=== PATIENT | female | born 1995 | race Caucasian/White ===

== ENCOUNTER 2017-01-17 23:26 | Emergency (ER) | payer OTHER ==
[~2017-01-17] VITALS: Ht 172.7 cm; Wt 78.5 kg
[2017-01-17 23:45] VITALS: Ht 172.7 cm; Wt 78.5 kg
[2017-01-18] MEDS ORDERED: SODIUM CHLORIDE 0.9% 1000ML 1,000 ML IV STA (00:28)
[2017-01-18] MEDS ORDERED: ONDANSETRON INJ 2 MG/ML 2 ML VIAL IV STA (00:28)
--- NOTE | 2017-01-18 00:35 | EMERGENCY ROOM VISIT NOTE ---
History Report prepared by Scribe: Charito Fang Under the Supervision of: Dr. Vince Calderón M.D. First contact with patient: 00:04 Chief Complaint: RAPID HEART RATE Stated Complaint: DRANK AN ENERGY DRINK, HEART BEATING FAST Nursing Triage Summary: Pt states she was drinking an energy drink throughout the day and had last sip around 5pm and her heart has felt like it has been beating fast since then with nausea and dizziness. Pt states she did have some alcohol mixed with it. Has had energy drinks before. Pt states she still feels very jittery but not nauseous anymore. History of Present Illness The patient is a 21 year old female who presents to the Emergency Room with complaints of an episode of rapid heart beat beginning two and half hours ago. The patient states she was drinking an energy drink throughout the day and stopped drinking it around 5pm. She notes she was also drinking tequila with the energy drink. The patient feels nauseous but denies any fever chills, or vomiting. The patient's last menstrual period was a week ago. Presently, the patient states that her heart beat has calmed down since arriving to the ED. Source of History: patient Onset: 2 and a half hours ago Position: other (heart) Quality: other (racing) Timing: other (episode) Associated Symptoms: + nausea, No fevers, No chills Review of Systems See HPI for pertinent positives and negatives. A total of ten systems were reviewed and were otherwise negative. Past Medical & Surgical Medical Problems: (1) No Known Active Medical Problems Family History No active medical problems Social History Smoking Status: Never Smoker Marital Status: single Housing Status: lives with roommate Occupation Status: [employer] student Current/Historical Medications No Active Prescriptions or Reported Meds Allergies Coded Allergies: No Known Allergies (Unverified , 01/17/17) Physical Exam Vital Signs Date Time Temp Pulse Resp B/P (MAP) Pulse Ox O2 Delivery O2 Flow Rate FiO2 01/18/17 02:18 36.6 84 16 154/81 99 01/18/17 01:16 74 16 123/81 100 Room Air 01/17/17 23:59 86 01/17/17 23:45 36.6 96 18 144/81 98 Room Air Physical Exam GENERAL: Awake, alert, anxious-appearing, in no distress HENT: Normocephalic, atraumatic. Oropharynx unremarkable. Dry MM. EYES: Normal conjunctiva. Sclera non-icteric. NECK: Supple. No nuchal rigidity. FROM. No JVD. RESPIRATORY: Clear to auscultation. CARDIAC: Regular rate, normal rhythm. Extremities warm and well perfused. Pulses equal. ABDOMEN: Soft, non-distended. No tenderness to palpation. No rebound or guarding. No masses. RECTAL: Deferred. MUSCULOSKELETAL: Chest examination reveals no tenderness. The back is symmetrical on inspection without obvious abnormality. There is no CVA tenderness to palpation. No joint edema. LOWER EXTREMITIES: Calves are equal size bilaterally and non-tender. No edema. No discoloration. NEURO: Normal sensorium. No sensory or motor deficits noted. SKIN: No rash or jaundice noted. Medical Decision & Procedures Laboratory Results 01/18/17 00:15 Red Blood Count 4.78, Mean Corpuscular Volume 83.3, Mean Corpuscular Hemoglobin 28.9, Mean Corpuscular Hemoglobin Concent 34.7, Mean Platelet Volume 10.8, Neutrophils (%) (Auto) 45.9, Lymphocytes (%) (Auto) 40.7, Monocytes (%) (Auto) 10.4, Eosinophils (%) (Auto) 2.0, Basophils (%) (Auto) 0.9, Neutrophils # (Auto ) 4.26, Lymphocytes # (Auto) 3.78, Monocytes # (Auto) 0.97, Eosinophils # (Auto ) 0.19, Basophils # (Auto) 0.08 01/18/17 00:15 Test 01/18/17 00:15 White Blood Count 9.29 K/uL (4.8-10.8) Red Blood Count 4.78 M/uL (4.2-5.4) Hemoglobin 13.8 g/dL (12.0-16.0) Hematocrit 39.8 % (37-47) Mean Corpuscular Volume 83.3 fL (80-100) Mean Corpuscular Hemoglobin 28.9 pg (25-34) Mean Corpuscular Hemoglobin Concent 34.7 g/dl (32-36) Platelet Count 246 K/uL (130-400) Mean Platelet Volume 10.8 fL (7.4-10.4) Neutrophils (%) (Auto) 45.9 % Lymphocytes (%) (Auto) 40.7 % Monocytes (%) (Auto) 10.4 % Eosinophils (%) (Auto) 2.0 % Basophils (%) (Auto) 0.9 % Neutrophils # (Auto) 4.26 K/uL (1.4-6.5) Lymphocytes # (Auto) 3.78 K/uL (1.2-3.4) Monocytes # (Auto) 0.97 K/uL (0.11-0.59) Eosinophils # (Auto) 0.19 K/uL (0-0.5) Basophils # (Auto) 0.08 K/uL (0-0.2) RDW Standard Deviation 41.2 fL (36.4-46.3) RDW Coefficient of Variation 13.7 % (11.5-14.5) Immature Granulocyte % (Auto) 0.1 % Immature Granulocyte # (Auto) 0.01 K/uL (0.00-0.02) Anion Gap 8.0 mmol/L (3-11) Est Creatinine Clear Calc Drug Dose 113.2 ml/min Estimated GFR () 110.4 Estimated GFR (Non- 95.3 BUN/Creatinine Ratio 18.5 (10-20) Calcium Level 8.8 mg/dl (8.5-10.1) Total Bilirubin 0.3 mg/dl (0.2-1) Direct Bilirubin mg/dl (0-0.2) Aspartate Amino Transf (AST/SGOT) 25 U/L (15-37) Alanine Aminotransferase (ALT/SGPT) 24 U/L (12-78) Alkaline Phosphatase 69 U/L (45-117) Troponin I < 0.015 ng/ml (0-0.045) Total Protein 8.7 gm/dl (6.4-8.2) Albumin 4.5 gm/dl (3.4-5.0) Lipase 113 U/L (73-393) Human Chorionic Gonadotropin, Qual NEG (NEG) Chemistry Specimen Hemolysis Laboratory results reviewed by me ECG Indication: palpitations Rate (beats per minute): 92 Rhythm: sinus with SA Findings: no acute ischemic change, other (Normal axis) ED Course 0027: The patient was evaluated in room A2. A complete history and physical exam was performed. 0028: Sodium Chloride 1000 ml @ 999 mls/hr IV, Zofran Inj 4 [place]. [address]: I reassessed the patient and updated her with her test results. 0220: I reevaluated the patient. Discussed results and discharge instructions: She verbalized understanding and agreement. The patient is ready for discharge. Medical Decision I reviewed the patient's past medical history, medications, and the nursing notes as described above. Differential diagnoses: arrhythmia, adverse effect from energy drink, dehydration, electrolyte abnormalities. The patient is a 21 y/o woman who presents to the ED with palpitations after having an energy drink with alcohol earlier in the evening. On arrival the patient is in NAD, AFVSS. EKG with NSR. Trop negative. Labs otherwise unremarkable. Sx improved with oral hydration. Sx most c/w adverse effects from energy drink. Findings and plan for follow-up d/w patient. Patient agreeable and d/c'd per discharge instructions. Medication Reconcilliation Current Medication List: was personally reviewed by me Blood Pressure Screening Patient's blood pressure: Normal blood pressure Impression Primary Impression: Palpitations Scribe Attestation The scribe's documentation has been prepared under my direction and personally reviewed by me in its entirety. I confirm that the note above accurately reflects all work, treatment, procedures, and medical decision making performed by me. Departure Information Dispostion Home / Self-Care Prescriptions No Active Prescriptions or Reported Meds Referrals No Doctor, Assigned (PCP) Forms HOME CARE DOCUMENTATION FORM, IMPORTANT VISIT INFORMATION, WORK / SCHOOL INSTRUCTIONS Patient Instructions ED Palpitations, My [facility] Additional Instructions Please follow up with your primary care physician in the next 1-3 days for re- evaluation. Your symptoms were likely due to your energy drink. Avoid these drinks in the future. Otherwise, your exam, EKG, and lab results did not show signs of an emergent condition at this time. Return to the emergency department for worsening symptoms as described in the accompanying instructions.
[2017-01-18 00:50] LABS: BASO % 0.9 %; BASO ABS # 0.08 K/uL (0-0.2); COMPLETE YES; HEMATOCRIT 39.8 % (37-47); IG% 0.1 %; LYMPH % 40.7 %; LYMPH ABS # 3.78 K/uL (1.2-3.4); MEAN CELL VOLUME 83.3 fL (80-100); MEAN CORPUSCULAR HEMOGLOBIN 28.9 pg (25-34); MEAN CORPUSCULAR HGB CONC 34.7 g/dl (32-36); MEAN PLATELET VOLUME 10.8 fL (7.4-10.4); MONO % 10.4 %; NEUT % 45.9 %; PLATELET COUNT 246 K/uL (130-400); RED BLOOD COUNT 4.78 M/uL (4.2-5.4); WHITE BLOOD COUNT 9.29 K/uL (4.8-10.8)
[2017-01-18 01:03] LABS: PREG INTERNAL NEGATIVE QC NEG CLEAR BACKGROUND; PREG INTERNAL POSITIVE QC POS CONTROL LINE
[2017-01-18 01:21] LABS: ALKALINE PHOSPHATASE 69 U/L (45-117); ALT/SGPT 24 U/L (12-78); AST/SGOT 25 U/L (15-37); BLOOD UREA NITROGEN 16 mg/dl (7-18); BUN/CREATININE RATIO 18.5 (10-20); CALCIUM 8.8 mg/dl (8.5-10.1); CARBON DIOXIDE 25 mmol/L (21-32); CHLORIDE 106 mmol/L (98-107); CREATININE 0.88 mg/dl (0.60-1.20); GLUCOSE 91 mg/dl (70-99); POTASSIUM 3.7 mmol/L (3.5-5.1); SODIUM 139 mmol/L (136-145)
[2017-01-18 02:18] VITALS: BP 154/81; PULSE 84; TEMP 36.6; O2SAT 99
== END 2017-01-18 02:19 | disposition home or self-care (01) ==
LOC: C.EDB 23:29 → C.EDA 01-18 02:19
DX: R00.2 Palpitations (principal)